=== PATIENT | female | born 1955 | race Caucasian/White ===

== ENCOUNTER 2017-09-04 13:57 | Emergency (ER) | payer OTHER ==
[2017-09-04 14:07] VITALS: BP 136/53
--- NOTE | 2017-09-04 14:58 | ED Physician Documentation ---
Upper Extremity Injury - HISTORIAN Historian: patient - HPI Stated Complaint: Right wrist pain Chief Complaint: Upper Extremity Problem Onset: just prior to arrival Severity: severe Context: fall Further Comments: yes (62 year old female patient presents with right wrist pain after a fall from standing. Patient states she slipped on wet grass.) - ROS CONST: no problems CVS/RESP: none NEURO: none MS/SKIN/LYMPH: none GI/: denies: nausea, vomiting - PAST HX Past History: Rt handed, other (osteoporosis, left wrist fracture) Allergies/Adverse Reactions: Allergies Allergy/AdvReac Type Severity Reaction Status Date / Time No Known Allergies Allergy Verified 09/04/17 14:07 Home Medications: Ambulatory Orders Medication Instructions Recorded Atorvastatin Calcium 20 mg PO HS 09/04/17 Dexlansoprazole [Dexilant] 60 mg PO DAILY 09/04/17 - SOCIAL HX Smoking History: non-smoker - FAMILY HX Family History: denies: none - VITAL SIGNS Vital Signs: Vital Signs Temp Pulse Resp BP Pulse Ox 98.2 F 74 16 136/53 98 09/04/17 16:00 09/04/17 16:00 09/04/17 16:00 09/04/17 16:00 09/04/17 16:00 - REVIEWED ASSESSMENTS Nursing Assessment Reviewed: Yes Vitals Reviewed: Yes Progress - Progress Progress: [address] Codi richter; picture of images sent. Orders for splint , rest, ice, no NSAIDs, call Dr Gentile on Thursday for appointment. reviewed discharge instructions with patient - verbalized understanding. ED Results Lab/Radiology - Radiology Radiology Impressions: Examination: Plain film right wrist History: RT WRIST, PAIN IN RT WRIST AFTER FALL TODAY, WORSE ON RADIAL SIDE, PT STATES SHE HEARD A POP WHEN SHE FELL (Hx) Comparison exams: None available Findings: 3 views the right wrist demonstrates diffuse osteopenia. Lucency involving the distal radius with posterior angulation. No other definite cortical irregularities identified. Articular degenerative changes. Soft tissue swelling. Impression: Distal radial fracture with posterior angulation. Electronically signed on Sep 04, 2017 2:38:03 PM JALOUSIES INSTALLER by: Johnson Jeong - Orders Orders: ED Orders Category Date Time Status WRIST 3 VIEWS OR MORE [RAD] Stat Exams 09/04/17 14:02 Ordered Upper Extremity Injury Physic - Physical Exam General Appearance: mild distress Hand: normal inspection, non-tender, no evidence of injury, normal ROM Wrist: deformity (right), limited ROM (right), soft tissue tenderness (right) Elbow/Forearm: normal inspection, non-tender, no evidence of injury, normal ROM Neuro/Vascular/Tendon: no vascular compromise, motor nml, sensation nml, ROM nml Skin: warm,dry Head/ENT: nml inspection, pharynx nml Neck/Back: nml inspection, non-tender Resp/CVS: chest non-tender, breath sounds nml, heart sounds nml, no resp. distress, lungs clear, reg. rate & rhythm Abdomen: non-tender, pelvis stable Discharge Clincal Impression: Distal radius fracture, right Qualifiers: Encounter type: initial encounter Fracture type: closed Fracture morphology: other fracture Qualified Code(s): S52.591A - Other fractures of lower end of right radius, initial encounter for closed fracture Referrals: Primary Doctor,No [Primary Care Provider] - 2 Days Additional Instructions: No weight bearing. Rest Ice !! Elevation - above the level of the heart Call orthopedics on Thursday [phone] - make an appointment with Dr Gentile Take your disc and report to the appointment. Do not take NSAIDS -ibuprofen, aleve, naproxen for pain Do not get your OCL splint wet. Place extremity in a trash bag to shower. Return to the ER right away if: You cannot wiggle your fingers if they are pale or blue Or if the splint is loose, damaged, gets wet or smells bad Condition: Stable Disposition: 01 HOME, SELF-CARE Decision to Admit: NO Decision Time: 15:52
--- NOTE | 2017-09-04 17:42 | Diagnostic Imaging Report ---
AVTAR DAVIDSON (IT INFRASTRUCTURE ENGINEER) - ER [facility] [id number] [id number] Report Submission Date: Sep 04, 2017 2:38:03 PM EXTRACORPOREAL TECHNICIAN Patient Study Name: JULIET SINCLAIR Date: Sep 04, 2017 2:16:05 PM EXTRACORPOREAL TECHNICIAN Modality Type: DX Gender: F Description: UPPER EXTREMITY : 57 Institution: [facility] Physician: AVTAR DAVIDSON (IT INFRASTRUCTURE ENGINEER) - ER Examination: Plain film right wrist History: RT WRIST, PAIN IN RT WRIST AFTER FALL TODAY, WORSE ON RADIAL SIDE, PT STATES SHE HEARD A POP WHEN SHE FELL (Hx) Comparison exams: None available Findings: 3 views the right wrist demonstrates diffuse osteopenia. Lucency involving the distal radius with posterior angulation. No other definite cortical irregularities identified. Articular degenerative changes. Soft tissue swelling. Impression: Distal radial fracture with posterior angulation. Electronically signed on Sep 04, 2017 2:38:03 PM EXTRACORPOREAL TECHNICIAN by: Johnson SPRAGUE
== END 2017-09-04 15:59 | disposition home or self-care (01) ==
LOC: ED 13:57
DX: S52.591A Other fractures of lower end of right radius, initial encounter for closed fracture (principal); W18.39XA Other fall on same level, initial encounter; Y93.9 Activity, unspecified; Y92.9 Unspecified place or not applicable; Y99.9 Unspecified external cause status
CPT/HCPCS: 73110; 99282; 99283